=== PATIENT | male | born 1990 | race Hispanic/Latino ===

== ENCOUNTER 2025-01-27 20:10 | Inpatient (IN) | payer OTHER, SELFPAY ==
[2025-01-27 21:41] LABS: Hematocrit 25.1 % (38.8-50.0); Hemoglobin 7.4 g/dL (13.5-17.5); Mean Corpuscular Hemoglobin 19.6 pg (27.0-33.0); Mean Corpuscular Volume 66.4 fL (81.2-95.1); Platelet Count 368 10x3/uL (150-450); Red Blood Cell (RBC) Count 3.78 10x6/uL (4.32-5.72); White Blood Cell (WBC) Count 9.34 10x3/uL (3.5-10.5)
[2025-01-27 21:45] LABS: Glucose, Urine (Dipstick) Normal (Negative); Leukocyte Negative (Negative); Protein, Urine (Dipstick) Negative (Neg-Trace); Specific Gravity, Urine 1.010 (1.005-1.030)
[2025-01-27 21:46] LABS: ALT (SGPT) 45 U/L (Less than 45); AST (SGOT) 40 U/L (11-34); Albumin 3.3 g/dL (3.1-4.5); Alkaline Phosphatase 90 U/L (40-110); Anion Gap 12 mmol/L (10-20); BUN (Urea Nitrogen) 13 mg/dL (8.9-20.6); Bilirubin, Total 0.2 mg/dL (0.3-1.2); Calc. Creatinine Clearance 0 mL/min (70-130); Calcium 8.6 mg/dL (7.8-10.44); Carbon Dioxide 25 mmol/L (22-29); Chloride 103 mmol/L (98-107); Globulin 3.2 g/dL (2.4-3.5); Glucose 96 mg/dL (70-105); Magnesium 1.9 mg/dL (1.6-2.6); Potassium 5.2 mmol/L (3.5-5.1); Sodium 135 mmol/L (136-145)
[2025-01-27 21:50] LABS: CAUTI Indications for Culture Pelvic or flank pain; RBC/HPF None Seen HPF (0-3); WBC/HPF None Seen HPF (0-3)
[2025-01-27 21:51] LABS: Urine Culture Reflex No No
[2025-01-27 21:52] LABS: Troponin I Less than 0.010 ng/mL (< 0.028)
[2025-01-27 21:57] LABS: MDiff Complete? YES; Microcytosis MODERATE=15-30 cells (100X) (0-5/hpf); Platelet Adequacy Comment Appears Adequate
[2025-01-27 21:58] LABS: #Basophils 0.05 10x3/uL (0.0-0.2); #Eosinophils 0.31 10x3/uL (0.0-0.5); #Monocytes 1.25 10x3/uL (0.0-1.1); #Neutrophils 5.19 10x3/uL (1.5-8.4); %Basophils 0.5 % (0.0-2.0); %Eosinophils 3.3 % (0.0-6.0); %Lymphocytes 27.0 % (18.0-47.0); %Monocytes 13.4 % (0.0-10.0); %Neutrophils 55.6 % (40.0-75.0)
[2025-01-28] MEDS ORDERED: Pantoprazole 40 MG VIAL ONE (00:41)
[2025-01-28 03:11] VITALS: BMI 24.3
[2025-01-28 05:10] LABS: #Basophils 0.06 10x3/uL (0.0-0.2); #Eosinophils 0.26 10x3/uL (0.0-0.5); #Monocytes 1.20 10x3/uL (0.0-1.1); #Neutrophils 4.65 10x3/uL (1.5-8.4); %Basophils 0.7 % (0.0-2.0); %Eosinophils 3.1 % (0.0-6.0); %Lymphocytes 25.6 % (18.0-47.0); %Monocytes 14.4 % (0.0-10.0); %Neutrophils 56.0 % (40.0-75.0); Hematocrit 27.3 % (38.8-50.0); Hemoglobin 8.1 g/dL (13.5-17.5); Mean Corpuscular Hemoglobin 20.0 pg (27.0-33.0); Mean Corpuscular Volume 67.6 fL (81.2-95.1); Platelet Count 387 10x3/uL (150-450); Red Blood Cell (RBC) Count 4.04 10x6/uL (4.32-5.72); White Blood Cell (WBC) Count 8.32 10x3/uL (3.5-10.5)
[2025-01-28 05:21] LABS: INR-International Normal Ratio 1.0; PTT 25.0 sec (22.0-33.0); Prothrombin Time 10.9 sec (9.5-12.1)
[2025-01-28 05:24] LABS: Anion Gap 9 mmol/L (10-20); BUN (Urea Nitrogen) 13 mg/dL (8.9-20.6); Calc. Creatinine Clearance 127 mL/min (70-130); Calcium 8.6 mg/dL (7.8-10.44); Carbon Dioxide 28 mmol/L (22-29); Chloride 106 mmol/L (98-107); Glucose 96 mg/dL (70-105); Iron 21 ug/dL (65-175); Iron Binding Capacity, Total 355 mcg/dL (261-462); Magnesium 1.9 mg/dL (1.6-2.6); Potassium 4.2 mmol/L (3.5-5.1); Sodium 139 mmol/L (136-145)
[2025-01-28 05:42] LABS: HIV (1/2) Antibody/Antigen Non-Reactive (NonReactive); HIV 1/2 INDEX 0.21 S/CO (<1.00)
[2025-01-28] MEDS: PNEUMOC 20-VAL CONJ-DIP CRM/PF 0.5 ML SYRINGE IM ONE (08:31)
[2025-01-28] MEDS: FLU (Fluarix Triv) 25-26 (6MOS UP)/PF 45 MCG/0.5 ML Syringe IM ONE (08:31)
[2025-01-28] MEDS: Pantoprazole 40 MG VIAL IVP SCH (10:31)
[2025-01-28 11:56] LABS: ALT (SGPT) 37 U/L (Less than 45); AST (SGOT) 24 U/L (11-34); Albumin 3.2 g/dL (3.1-4.5); Alkaline Phosphatase 78 U/L (40-110); Bilirubin, Direct 0.1 mg/dL (0.1-0.3); Bilirubin, Total 0.3 mg/dL (0.3-1.2)
[2025-01-28 17:57] LABS: Vitamin B12 357 pg/mL (211-911)
[2025-01-28] MEDS: GoLYTELY 4,000 ml Bottle PO PRN (19:39)
[2025-01-29 01:16] LABS: Chlam.trachomatis by PCR,Urine Not Detected (NotDetected); GC N.gonorrhoeae PCR,UrineVOID Not Detected (NotDetected)
[2025-01-29 05:41] LABS: Hematocrit 26.8 % (38.8-50.0); Hemoglobin 8.0 g/dL (13.5-17.5); Mean Corpuscular Hemoglobin 19.8 pg (27.0-33.0); Mean Corpuscular Volume 66.3 fL (81.2-95.1); Platelet Count 396 10x3/uL (150-450); Red Blood Cell (RBC) Count 4.04 10x6/uL (4.32-5.72); White Blood Cell (WBC) Count 7.73 10x3/uL (3.5-10.5)
[2025-01-29 06:00] LABS: Anion Gap 10 mmol/L (10-20); BUN (Urea Nitrogen) 8 mg/dL (8.9-20.6); Calc. Creatinine Clearance 159 mL/min (70-130); Calcium 8.5 mg/dL (7.8-10.44); Carbon Dioxide 25 mmol/L (22-29); Chloride 108 mmol/L (98-107); Glucose 86 mg/dL (70-105); Potassium 4.0 mmol/L (3.5-5.1); Sodium 139 mmol/L (136-145)
[2025-01-29 06:01] LABS: Anisocytosis SLIGHT = 6-15 cells (100X) (0-5/hpf); Macrocytosis SLIGHT = 6-15 cells (100X) (0-5/hpf); Polychromasia SLIGHT = 2-3 cells (100X) (0-2/hpf)
[2025-01-29 06:02] LABS: #Basophils 0.05 10x3/uL (0.0-0.2); #Eosinophils 0.15 10x3/uL (0.0-0.5); #Monocytes 0.97 10x3/uL (0.0-1.1); #Neutrophils 4.35 10x3/uL (1.5-8.4); %Basophils 0.6 % (0.0-2.0); %Eosinophils 1.9 % (0.0-6.0); %Lymphocytes 28.5 % (18.0-47.0); %Monocytes 12.5 % (0.0-10.0); %Neutrophils 56.4 % (40.0-75.0); Platelet Adequacy Comment Appears Adequate
[2025-01-29 12:35] VITALS: BP 128/74; TEMP 97.8
[2025-01-29] MEDS ORDERED: PROPOFOL 20 ML ONE (14:13)
[2025-01-29] MEDS ORDERED: Lidocaine 1% PF 5 ML VIAL ONE (14:13)
[2025-01-29] MEDS ORDERED: PROPOFOL 40 ML ONE (14:36)
[2025-01-29] MEDS: Ferrous Sulfate 325 MG TAB PO SCH (16:17)
== END 2025-01-29 17:43 | disposition home or self-care (01) | DRG 812 ==
LOC: CSHERS 20:10 → CSHERHOLD 01-28 02:26 → CSHTELE 01-28 08:11 → OBSVTOIN 01-29 08:27
PROVIDERS: ADMIT Family Medicine; ATTEND Family Medicine
PROC: 3E02340 Introduction of Influenza Vaccine into Muscle, Percutaneous Approach (ICD-10-PCS; 2025-01-28)
PROC: 3E0234Z Introduction of Serum, Toxoid and Vaccine into Muscle, Percutaneous Approach (ICD-10-PCS; 2025-01-28)
PROC: 0DJ08ZZ Inspection of Upper Intestinal Tract, Via Natural or Artificial Opening Endoscopic (ICD-10-PCS; principal; 2025-01-29)
PROC: 0DBP8ZZ Excision of Rectum, Via Natural or Artificial Opening Endoscopic (ICD-10-PCS; 2025-01-29)
DX: D50.9 Iron deficiency anemia, unspecified (principal); K92.2 Gastrointestinal hemorrhage, unspecified; N45.1 Epididymitis; Z98.890 Other specified postprocedural states; Z72.0 Tobacco use; F19.10 Other psychoactive substance abuse, uncomplicated; Z79.899 Other long term (current) drug therapy
CPT/HCPCS: 71045; 76870; 80048; 80053; 80076; 81001; 82274; 82607; 82728; 83540; 83550; 83735; 83880; 84484; 85025; 85046; 85610; 85730; 87389; 87491; 87591; 88305; 93005; 93970; 93976; 96374; 96376; G0378; J2470; J2704; J7030